=== PATIENT | male | born 1955 | race Caucasian/White ===

== ENCOUNTER → 2017-12-21 | Outpatient (CLI) | payer MEDICARE, BC ==
[2017-12-21 10:03] LABS: ALT 54 U/L (21-72); AST 34 U/L (17-59); Albumin 4.4 g/dL (3.5-5.0); Alkaline Phosphatase 42 U/L (38-126); Anion Gap 10 mmol/L; Blood Urea Nitrogen 21 mg/dL (9-20); Carbon Dioxide 24 mmol/L (22-30); Chloride 104 mmol/L (98-107); Cholesterol 99 mg/dL (<200); Glucose 135 mg/dL (74-99); HDL Cholesterol 36 mg/dL (40-60); LDL Cholesterol,Calculated 48 mg/dL (0-99); Potassium 4.9 mmol/L (3.5-5.1); Sodium 138 mmol/L (137-145); Total Bilirubin 0.5 mg/dL (0.2-1.3); Total Protein 6.9 g/dL (6.3-8.2); Triglycerides 73 mg/dL (<150)
[2017-12-21 18:48] LABS: Hemoglobin A1C 6.9 % (4.0-6.0)
== END | disposition home or self-care (01) ==
LOC: LABWHC1 09:12
PROVIDERS: ATTEND Internal Medicine Endocrinology, Diabetes & Metabolism
DX: E11.65 Type 2 diabetes mellitus with hyperglycemia (principal); E04.1 Nontoxic single thyroid nodule
CPT/HCPCS: 36415; 80053; 80061; 82043; 82570; 83036; 84439; 84443

== ENCOUNTER → 2019-01-23 | Outpatient (CLI) | payer MEDICARE, BC ==
--- NOTE | 2019-01-23 16:17 | US ---
EXAMINATION TYPE: US thyroid st tissue head/neck DATE OF EXAM: 01/23/2019 COMPARISON: NONE CLINICAL HISTORY: E11.65 TYPE 2 DIABETES. Hyperglycemia GLAND SIZE: Right Lobe: 5.1 x 2.2 x 1.8 cm Overall Parenchyma: homogenous Left Lobe: 4.6 x 1.5 x 1.3 cm Overall Parenchyma: homogeneous Isthmus Thickness: 0.5 cm NODULES RIGHT: # of nodules measured on right: 2 1. .8 X .5 x .6 cm mixed nodule at the upper pole with well-defined margins; . This nodule is wide r than tall and shows no intranodular vascularity. 2. .5 X .3 x .6 cm cystic nodule at the upper pole with well-defined margins; . This nodule is wide r than tall and shows no intranodular vascularity. LEFT: # of nodules measured on left: 2 1. .6 X .5 x .4 cm mixed nodule at the upper pole with well-defined margins; . This nodule is wide r than tall and shows no intranodular vascularity. 2. .4 X .4 x .4 cm cystic nodule at the upper pole with well-defined margins; . This nodule is wide r than tall and shows no intranodular vascularity. ISTHMUS: # of nodules measured in the isthmus: 0 Bilateral neck scanned, no evidence of lymphadenopathy. IMPRESSION: 1. Subcentimeter nodules bilateral thyroid lobes
== END | disposition home or self-care (01) ==
LOC: RADUSWWP 07:37
PROVIDERS: ATTEND Internal Medicine Endocrinology, Diabetes & Metabolism
DX: E04.1 Nontoxic single thyroid nodule (principal); E11.65 Type 2 diabetes mellitus with hyperglycemia
CPT/HCPCS: 76536

== ENCOUNTER → 2020-05-05 | Outpatient (CLI) | payer MEDICARE ==
[2020-05-05 15:11] LABS: African American GFR (CKD) 81.8 (60.0-200.0); Albumin 4.6 g/dL (3.80-4.90); Albumin/Globulin Ratio 2.19 (1.60-3.17); Anion Gap 7.1 mmol/L (4.00-12.00); BUN/Creat Ratio 19.09 Ratio (12.00-20.00); Calcium 9.8 mg/dL (8.7-10.3); Carbon Dioxide 25.9 mmol/L (21.6-31.8); Globulin 2.1 g/dL (1.6-3.3); Non-African American GFR(CKD) 70.6 (60.0-200.0); Potassium 4.9 mmol/L (3.5-5.5); Total Bilirubin 0.8 mg/dL (0.2-1.2); Total Protein 6.7 g/dL (6.2-8.2)
[2020-05-05 15:18] LABS: T4, Free (Free Thyroxine) 1.1 ng/dL (0.80-1.80)
[2020-05-05 15:31] LABS: Hemoglobin A1C 9.4 % (4.0-6.0)
== END | disposition home or self-care (01) ==
LOC: LABWHC1 08:51
PROVIDERS: ATTEND Internal Medicine Endocrinology, Diabetes & Metabolism
DX: E78.5 Hyperlipidemia, unspecified (principal); E11.65 Type 2 diabetes mellitus with hyperglycemia; E04.1 Nontoxic single thyroid nodule; I25.10 Atherosclerotic heart disease of native coronary artery without angina pectoris
CPT/HCPCS: 36415; 80053; 82043; 82570; 83036; 84439; 84443

== ENCOUNTER → 2020-05-12 | Outpatient (CLI) | payer MEDICARE ==
--- NOTE | 2020-05-12 14:59 | US ---
EXAMINATION TYPE: US thyroid st tissue head/neck DATE OF EXAM: 05/12/2020 COMPARISON: NONE CLINICAL HISTORY: E04.1 Nontoxic single thyroid nodule. GLAND SIZE: Right Lobe: 5.5 x 1.6 x 1.4 cm Overall Parenchyma: heterogenous Left Lobe: 3.4 x 1.2 x 1.0 cm Overall Parenchyma: heterogeneous Isthmus Thickness: 0.3 cm NODULES RIGHT: # of nodules measured on right: 2 1. 0.8 x 0.5 x 0.6 cm mixed cystic and solid, anechoic nodule, which is wider than tall, with hetal h margins, without echogenic foci. Prior size: 0.8 x 0.5 x 0.6 cm 2. 0.6 X 0.4 x 0.7 cm cystic or almost completely cystic, nodule, which is wider than tall, with sm ooth margins, without echogenic foci. Prior size: 0.5 x 0.3 x 0.6 cm LEFT: # of nodules measured on left: 2 1. 0.4 X 0.5 x 0.5 cm cystic or almost completely cystic, nodule, which is wider than tall, with sm ooth margins, without echogenic foci. Prior size: 0.6 x 0.5 x 0.4 cm 2. 0.5 X 0.4 x 0.4 cm cystic or almost completely cystic, nodule, which is taller than wide, with s mooth margins, without echogenic foci. Prior size: 0.4 x 0.4 x 0.4 cm ISTHMUS: # of nodules measured in the isthmus: 0 Bilateral neck scanned, no evidence of lymphadenopathy. IMPRESSION: Benign thyroid nodules. 2017 ACR TI-RADS LEVEL: 1 *Highest TI-RADS level nodule reported
== END | disposition home or self-care (01) ==
LOC: RADUSWWP 12:44
PROVIDERS: ATTEND Internal Medicine Endocrinology, Diabetes & Metabolism
DX: E04.2 Nontoxic multinodular goiter (principal)
CPT/HCPCS: 76536

== ENCOUNTER → 2020-08-24 | Outpatient (CLI) | payer MEDICARE ==
[2020-08-24 20:49] LABS: Hemoglobin A1C 7.2 % (4.0-6.0)
[2020-08-24 20:54] LABS: African American GFR (CKD) 81.2 (60.0-200.0); Albumin 4.9 g/dL (3.80-4.90); Albumin/Globulin Ratio 2.33 (1.60-3.17); Anion Gap 11.4 mmol/L (4.00-12.00); BUN/Creat Ratio 19.09 Ratio (12.00-20.00); Calcium 9.8 mg/dL (8.7-10.3); Carbon Dioxide 24.6 mmol/L (21.6-31.8); Globulin 2.1 g/dL (1.6-3.3); LDL Cholesterol,Calculated 55.2 mg/dL (0.0-131.0); Non-African American GFR(CKD) 70.1 (60.0-200.0); Potassium 4.8 mmol/L (3.5-5.5); Total Bilirubin 0.7 mg/dL (0.3-1.2); VLDL Calculation 34.8 mg/dL (5.00-40.00)
[2020-08-25 01:18] LABS: Urine Creatinine 89.6 mg/dL
== END | disposition home or self-care (01) ==
LOC: LABWHC1 11:39
PROVIDERS: ATTEND Internal Medicine Endocrinology, Diabetes & Metabolism
DX: E11.65 Type 2 diabetes mellitus with hyperglycemia (principal)
CPT/HCPCS: 36415; 80053; 80061; 82043; 82570; 83036; 84443

== ENCOUNTER → 2020-10-01 | Outpatient (CLI) | payer MEDICARE ==
[2020-10-01 18:52] LABS: Basophils % (A) 1.1 %; Eosinophils # (A) 0.37 X 10*3/uL (0.04-0.35); Eosinophils % (A) 4.1 %; HCT 43.3 % (39.6-50.0); Lymphocytes # (A) 2.29 X 10*3/uL (0.90-5.00); Lymphocytes % (A) 25.2 %; MCHC 32.3 g/dL (32.0-37.0); MCV 95.8 fL (80.0-97.0); Mean Platelet Volume 10.8 fL (9.5-12.2); Monocytes # (A) 0.62 X 10*3/uL (0.20-1.00); Monocytes % (A) 6.8 %; Neutrophils # (A) 5.55 X 10*3/uL (1.80-7.70); Platelet Count 227 X 10*3/uL (140-440); RBC 4.52 X 10*6/uL (4.40-5.60); RDW 13.5 % (11.5-14.5); WBC 9.09 X 10*3/uL (4.50-10.00)
== END | disposition home or self-care (01) ==
LOC: LABWHC1 09:08
PROVIDERS: ATTEND Family Medicine
DX: Z00.00 Encounter for general adult medical examination without abnormal findings (principal); Z12.11 Encounter for screening for malignant neoplasm of colon; Z12.5 Encounter for screening for malignant neoplasm of prostate; Z13.6 Encounter for screening for cardiovascular disorders; Z12.2 Encounter for screening for malignant neoplasm of respiratory organs; K57.90 Diverticulosis of intestine, part unspecified, without perforation or abscess without bleeding; N52.9 Male erectile dysfunction, unspecified; R53.83 Other fatigue
CPT/HCPCS: 36415; 84403; 85025

== ENCOUNTER → 2020-10-08 | Outpatient (CLI) | payer MEDICARE ==
--- NOTE | 2020-10-08 09:46 | CTL ---
EXAMINATION TYPE: CT Low Dose Lung DATE OF EXAM ORDERED: 10/08/2020 HISTORY: Long-term tobacco use. Lung cancer screening CT DLP: 99.[address] CTDI: 2.60 mGy Automated exposure control for dose reduction was used. SCREENING VISIT: Initial study COMPARISON: None TECHNIQUE: Low dose computed tomography scan was performed through the chest at 1 mm thick sections a nd reconstructed images in the coronal plane at [address] DIAGNOSTIC QUALITY: Satisfactory FINDINGS: LUNG NODULES: Present, detailed below: There is 2 to 3 mm anterior right mid lung nodule axial image 136. No concerning greater than 4 mm nodules. LUNGS: COPD: Severity: Mild to moderate Fibrosis: Severity: None Lymph nodes: None Other findings: None RIGHT PLEURAL SPACE: Effusion: None Calcification: None Thickening: None Pneumothorax: None LEFT PLEURAL SPACE: Effusion: None Calcification: None Thickening: None Pneumothorax: None HEART: Heart Size: Normal Coronary calcification: Moderate to severe three-vessel Pericardial effusion: None OTHER FINDINGS: Upper abdomen: Visualized liver heterogeneously hypodense consistent with diffuse fatty infiltration Bony thorax: Scoliotic curvature with mild to moderate multilevel spurring. Straightening of spine. Supraclavicular region: None Other: None IMPRESSION: No concerning greater than [address] LUNG RAD AND CT CHEST RECOMMENDATION: Lung-Rad 2 Benign Appearance or Behavior: Continue annual sc reening with LDCT in 12 months. S Modifier (other clinically significant findings): S Moderate to severe three-vessel coronary artery calcification should be correlated with additional ca rdiac risk factors.
--- NOTE | 2020-10-08 09:55 | US ---
EXAMINATION TYPE: US duplex aorta DATE OF EXAM: 10/08/2020 COMPARISON: NONE CLINICAL HISTORY: V81.2, Z13.6 AAA. Medicare screening EXAM MEASUREMENTS: Abdominal Aorta: Proximal: 2.3cm Mid: 1.8cm Distal: 1.5cm Bifurcation: obscured by overlying bowel gas Patient of large body habitus carrying most of his weight in his abdomen. Technically difficult, limi francis study. Visualized portion of the liver is heterogeneous hyperechoic suggesting diffuse fatty infiltration. IMPRESSION: Suboptimal study without ultrasound evidence for greater than 3.0 cm AAA on the images sa kamla.
== END | disposition home or self-care (01) ==
LOC: RADCTMAIN 09:08
PROVIDERS: ATTEND Family Medicine
DX: Z12.2 Encounter for screening for malignant neoplasm of respiratory organs (principal); I71.4 Abdominal aortic aneurysm, without rupture; Z13.6 Encounter for screening for cardiovascular disorders; Z87.891 Personal history of nicotine dependence
CPT/HCPCS: 71271; 93979

== ENCOUNTER → 2021-03-17 | Outpatient (CLI) | payer MEDICARE | END | disposition home or self-care (01) | LOC: LABWHC1 11:42 | PROVIDERS: ATTEND Family Medicine | DX: R29.898 Other symptoms and signs involving the musculoskeletal system (principal); R26.89 Other abnormalities of gait and mobility | CPT/HCPCS: 36415; 82746 ==

== ENCOUNTER → 2021-05-18 | Outpatient (CLI) | payer MEDICARE ==
[2021-05-18 15:53] LABS: ALT 28 U/L (10-49); AST 20 U/L (14-35); African American GFR (CKD) 97.1 (60.0-200.0); Albumin 4.6 g/dL (3.8-4.9); Albumin/Globulin Ratio 1.91 (1.60-3.17); Alkaline Phosphatase 58 U/L (41-126); BUN/Creat Ratio 25.92 Ratio (12.00-20.00); Blood Urea Nitrogen 24.6 mg/dL (9.0-27.0); Calcium 9.9 mg/dL (8.7-10.3); Carbon Dioxide 19.5 mmol/L (20.0-27.5); Chloride 102 mmol/L (96-109); Chol/HDL Ratio 4.44 Ratio; Globulin 2.4 g/dL (1.6-3.3); Glucose 180 mg/dL (70-110); LDL Cholesterol,Calculated 83.5 mg/dL (0.0-131.0); Non-African American GFR(CKD) 83.8 (60.0-200.0); Potassium 4.5 mmol/L (3.5-5.5); Sodium 136 mmol/L (135-145); Total Protein 6.9 g/dL (6.2-8.2)
[2021-05-18 22:47] LABS: Microalbumin Creatinine Ratio <30 mg/g Creat (0-30); Urine Creatinine 70.5 mg/dL (39.0-259.0)
== END | disposition home or self-care (01) ==
LOC: LABWHC1 09:31
PROVIDERS: ATTEND Internal Medicine Endocrinology, Diabetes & Metabolism
DX: E11.65 Type 2 diabetes mellitus with hyperglycemia (principal)
CPT/HCPCS: 36415; 80053; 80061; 82043; 82570; 83036; 84443

== ENCOUNTER → 2021-05-20 | Outpatient (CLI) | payer MEDICARE ==
[2021-05-20 17:56] LABS: T4, Free (Free Thyroxine) 1.32 ng/dL (0.800-1.800)
[2021-05-20 20:28] LABS: Protein, Total 7.1 g/dL (6.2-8.2)
== END | disposition home or self-care (01) ==
LOC: LABWHC1 09:48
PROVIDERS: ATTEND Psychiatry & Neurology Neurology
DX: G72.9 Myopathy, unspecified (principal); G60.9 Hereditary and idiopathic neuropathy, unspecified; R26.89 Other abnormalities of gait and mobility
CPT/HCPCS: 36415; 82306; 82550; 82607; 84165; 84207; 84439; 86334

== ENCOUNTER → 2021-05-23 | Outpatient (CLI) | payer MEDICARE ==
--- NOTE | 2021-05-27 04:53 | MR ---
EXAMINATION TYPE: MR cervical spine wo/w con DATE OF EXAM: 05/23/2021 COMPARISON: None HISTORY: Myelopathy, Muscle Weakness CONTRAST: Standard multiplanar, multisequence MRI departmental protocol images were obtained without contrast a nd with 9 mL intravenous Gadavist gadolinium contrast. Cervical vertebra have fairly normal alignment. There is some straightening of the mid cervical spine . There is degenerative disc space narrowing and decreased signal in the disks in the mid and lower c ervical spine. There is apparent old fusion surgery at C5-6. Cervical spinal cord has normal signal p attern. There is no edema. There is no spinal stenosis. Spinal canal measures 9.5 mm at the narrowest point which is C3-4. Brainstem is intact. There is no evidence of focal bone destruction. There is no cervical paraspinal mass. Contrast images show no pathologic enhancement. IMPRESSION: Previous fusion surgery. No spinal stenosis. No fracture.
== END | disposition home or self-care (01) ==
LOC: RADMRIMAIN 09:00
PROVIDERS: ATTEND Psychiatry & Neurology Neurology
DX: M48.02 Spinal stenosis, cervical region (principal); M50.10 Cervical disc disorder with radiculopathy, unspecified cervical region; Z98.1 Arthrodesis status
CPT/HCPCS: 72156; A9585

== ENCOUNTER → 2021-06-19 | Outpatient (CLI) | payer MEDICARE ==
--- NOTE | 2021-06-19 20:34 | MR ---
EXAMINATION TYPE: MR thoracic spine wo con DATE OF EXAM: 06/19/2021 COMPARISON: None HISTORY: Back pain, ataxia, manish leg weakness. Standard multiplanar, multisequence MRI departmental protocol Multiplanar, multisequence images of the thoracic were acquired without contrast. FINDINGS: Alignment is anatomic. There is loss of disc signal at all levels with mild to moderate multilevel de generative disc disease. No active marrow edema or compression deformities. T1-T2 no disc herniation or canal stenosis. No foraminal encroachment. At T2-T3 there is no evidence of disc herniation or canal stenosis. No foraminal encroachment. At T3-T4 there is minimal right paracentral disc bulging but no focal herniation. No Canal stenosis. Neural foramina remain patent. At T4-T5 there is degenerative disc disease and minimal central disc bulging but no evidence of canal stenosis or foraminal encroachment. At T5-T6 is degenerative disc disease. No disc herniation, or canal stenosis. No foraminal encroachme nt. At T6-T7 there is no disc herniation or canal stenosis. No foraminal encroachment. At T7-T8 there is left paracentral disc bulging. No canal stenosis or foraminal encroachment. There i s degenerative disc disease. At T8-T9 there is right paracentral disc bulging but no canal stenosis or foraminal protrusion. At T9-T10 degenerative disc disease but no disc herniation or canal stenosis. No foraminal encroachme nt At T10-T11 there is a focal left paracentral disc protrusion or small herniation. There is mild left- sided foraminal encroachment. There is no Canal stenosis. At T11-T12 there is degenerative disc disease but no disc herniation or canal stenosis. Neural forami na patent. T12-L1 no disc herniation or canal stenosis. There is facet arthropathy. No foraminal encroachment. There is no abnormal signal noted in the visualized portions of the spinal cord. No Canal stenosis. Faint nodularity seen in the right lung which could be artifactual but recommend correlation with [facility] CT scan. IMPRESSION: 1. Multilevel degenerative disc disease and multilevel disc bulging as discussed above. Most marked f indings seen at level T10-T11 with a focal left paracentral disc protrusion and mild left-sided shan inal encroachment. 2. Question of a right-sided pulmonary nodule right lung axial image 19 series 801. Measuring approxi mately [address] of the chest. EXAMINATION TYPE: MR lumbar spine wo con DATE OF EXAM: 06/19/2021 COMPARISON: NONE HISTORY: Back pain, ataxia, manish leg weakness. TECHNIQUE: T1 and T2 axial and sagittal images of the lumbar spine are submitted. FINDINGS: There is no abnormal signal seen within the visualized spinal cord or paraspinal soft tissu es. Slight scoliotic curvature of the spine. At L1-2 there is severe degenerative disc disease with right paracentral broad-based disc herniation resulting in moderate effacement of thecal sac and right-sided foraminal encroachment. Mild canal nathaniel nosis. At L2-3 there is severe degenerative disc disease with broad-based central disc protrusion and severe facet arthropathy. Mild to moderate bilateral foraminal encroachment greater on the right. At L3-4 there is moderate degenerative disc disease with diffuse broad-based disc bulging or protrusi on. There is borderline canal stenosis with facet arthropathy and mild bilateral foraminal encroachme nt greater on the right. At L4-5 there is degenerative disc disease with left paracentral disc protrusion. Disc material does extend posterior to the upper margin of the L5 vertebral segment on the left suggestive of a small ex truded disc herniation. Facet arthropathy. Mild effacement of thecal sac and mild to moderate bilater al foraminal encroachment. At L5-S1 there is degenerative disc disease with facet arthropathy. There is moderate bilateral shan inal encroachment and bilateral lateral recess stenosis with mild canal stenosis. There is diffuse di sc bulging with more broad-based component paracentrally and laterally to the left. Could not exclude a small left paracentral extruded disc fragment. Recommend post contrast imaging. IMPRESSION: 1. Multilevel severe degenerative disc disease with multilevel disc protrusion or herniation as discu ssed above. 2. Left paracentral disc herniation L4-L5 disc material extending along the posterior margin of the u pper L5 segment suggestive of a small extruded disc herniation. 3. Broad-based disc bulging L5-S1 with a small focal 5 mm area of abnormal signal within the left lat eral recess. Could not exclude a tiny extruded disc fragment recommend post contrast axial and sagitt al images for further evaluation. This could affect the left side nerve root correlation for radiculo meet in this distribution recommended. 4. Right paracentral broad-based disc herniation with moderate effacement of thecal sac and right-tyler ed foraminal encroachment L1-L2. 5. Multilevel canal stenosis and foraminal encroachment as discussed above.
== END | disposition home or self-care (01) ==
LOC: RADMRIMAIN 11:57
PROVIDERS: ATTEND Psychiatry & Neurology Neurology
DX: M51.36 Other intervertebral disc degeneration, lumbar region (principal); M51.34 Other intervertebral disc degeneration, thoracic region; M51.27 Other intervertebral disc displacement, lumbosacral region; M51.26 Other intervertebral disc displacement, lumbar region
CPT/HCPCS: 72146; 72148

== ENCOUNTER 2021-07-13 11:06 | Emergency (ER) | payer MEDICARE ==
[2021-07-13 11:24] VITALS: RESP 18
[2021-07-13] MEDS ORDERED: SODIUM CHLORIDE 0.9% 500 ML 500 ML IV STA (12:19)
[2021-07-13 12:45] LABS: Basophils # (A) 0.1 k/uL (0-0.2); Basophils % (A) 1 %; Eosinophils # (A) 0.3 k/uL (0-0.7); Eosinophils % (A) 4 %; HCT 39.7 % (39.0-53.0); HGB 13.5 gm/dL (13.0-17.5); Lymphocytes # (A) 1.8 k/uL (1.0-4.8); Lymphocytes % (A) 22 %; MCH 32.4 pg (25.0-35.0); MCV 95.5 fL (80.0-100.0); Mean Platelet Volume 8.6; Monocytes # (A) 0.4 k/uL (0-1.0); Monocytes % (A) 5 %; Neutrophils # (A) 5.4 k/uL (1.3-7.7); Neutrophils % (A) 66 %; Platelet Count 242 k/uL (150-450); RBC 4.16 m/uL (4.30-5.90); RDW 13.9 % (11.5-15.5); WBC 8.2 k/uL (3.8-10.6)
--- NOTE | 2021-07-13 12:45 | ED ---
General Adult HPI - General Chief complaint: Fall Stated complaint: Fall yesterday/head injury/blood thinners Time Seen by Provider: 07/13/21 12:05 Source: patient, RN notes reviewed, old records reviewed Mode of arrival: wheelchair Limitations: no limitations - History of Present Illness Initial comments: 65-year-old male presents for evaluation after a spell, loss consciousness and fall which occurred yesterday at 7 PM. He is presenting for evaluation at noon. He is on aspirin and brilinta. Patient states that he felt dizzy, fell striking the molding. He is uncertain how long he was unconscious. He states that he woke on the floor. Gone to bed normally states he felt relatively good throughout the evening. No chest pain. No palpitations. No vomiting or diarrhea. He has a mild headache at the site of injury. No recent fevers. - Related Data Previous Rx's Medication Instructions Recorded Azithromycin [Zithromax Z-pack] 0 mg PO DIRECTED #6 tab 07/13/21 Allergies Allergy/AdvReac Type Severity Reaction Status Date / Time No Known Allergies Allergy Verified 07/13/21 11:23 Review of Systems ROS Statement: Those systems with pertinent positive or pertinent negative responses have been documented in the HPI. ROS Other: All systems not noted in ROS Statement are negative. Past Medical History Past Medical History: Neurologic Disorder History of Any Multi-Drug Resistant Organisms: None Reported Past Surgical History: Heart Catheterization With Stent Past Psychological History: Anxiety Smoking Status: Never smoker Past Alcohol Use History: None Reported Past Drug Use History: None Reported General Exam Limitations: no limitations General appearance: alert, in no apparent distress Head exam: Present: other (Abrasion and superficial laceration to the left parietal scalp no active bleeding.) Eye exam: Present: normal appearance, PERRL ENT exam: Present: normal exam Neck exam: Present: normal inspection. Absent: tenderness, meningismus Respiratory exam: Present: normal lung sounds bilaterally. Absent: respiratory distress, wheezes Cardiovascular Exam: Present: regular rate, normal rhythm GI/Abdominal exam: Present: soft. Absent: distended, tenderness, guarding Extremities exam: Present: normal inspection, normal capillary refill. Absent: pedal edema, joint swelling Neurological exam: Present: alert, oriented X3, CN II-XII intact. Absent: motor sensory deficit Psychiatric exam: Present: normal affect, normal mood Skin exam: Present: warm, dry. Absent: cyanosis, diaphoretic Course Vital Signs 07/13/21 07/13/21 11:17 13:31 Temperature 98.2 F 97.6 F Pulse Rate 100 81 Respiratory 18 18 Rate Blood Pressure 94/63 106/56 O2 Sat by Pulse 95 96 Oximetry EKG Findings - EKG Comments: EKG Findings:: EKG: Sinus rhythm left axis, left bundle branch block, rate of 89, MS interval 149, QRS duration 141, QTC 414, no old for comparison. Patient states he does have history of left bundle branch block. Medical Decision Making - Medical Decision Making 65-year-old male presenting status post fall, loss consciousness. The exact details of the fall are not known but the patient really has no complaints time my evaluation. He is in sinus rhythm. He has a left bundle which she states is old, no old EKG for comparison. Chest x-ray shows some questionable interstitial infiltrate. He does report a previous tobacco use history and I'm increased cough over the past several days. He has a normal CBC, CMP showing a mild hyperglycemia and an acidosis with CO2 of 16. He has no ketones in the urine. His head CT is negative for intracranial hemorrhage, C-spine negative for fracture subluxation. I did offer the patient observation for telemetry and cardiology consultation but the patient declines he prefers to go home. He'll be prescribed antibiotics for this questionable pneumonia with increased cough. Return parameters discussed. - Lab Data Result diagrams: 07/13/21 12:33 07/13/21 12:33 Lab Results 07/13/21 07/13/21 07/13/21 Range/Units 12:33 12:33 12:33 WBC 8.2 (3.8-10.6) k/uL RBC 4.16 L (4.30-5.90) m/uL Hgb 13.5 (13.0-17.5) gm/dL Hct 39.7 (39.0-53.0) % MCV 95.5 (80.0-100.0) fL MCH 32.4 (25.0-35.0) pg MCHC 34.0 (31.0-37.0) g/dL RDW 13.9 (11.5-15.5) % Plt Count 242 (150-450) k/uL MPV 8.6 Neutrophils % 66 % Lymphocytes % 22 % Monocytes % 5 % Eosinophils % 4 % Basophils % 1 % Neutrophils # 5.4 (1.3-7.7) k/uL Lymphocytes # 1.8 (1.0-4.8) k/uL Monocytes # 0.4 (0-1.0) k/uL Eosinophils # 0.3 (0-0.7) k/uL Basophils # 0.1 (0-0.2) k/uL PT 9.8 (9.0-12.0) sec INR 0.9 (<1.2) APTT 21.3 L (22.0-30.0) sec Sodium (137-145) mmol/L Potassium (3.5-5.1) mmol/L Chloride (98-107) mmol/L Carbon Dioxide (22-30) mmol/L Anion Gap mmol/L BUN (9-20) mg/dL Creatinine (0.66-1.25) mg/dL Est GFR (CKD-EPI)AfAm (>60 ml/min/1.73 sqM) Est GFR (CKD-EPI)NonAf (>60 ml/min/1.73 sqM) Glucose (74-99) mg/dL Calcium (8.4-10.2) mg/dL Magnesium (1.6-2.3) mg/dL Total Bilirubin (0.2-1.3) mg/dL AST (17-59) U/L ALT (4-49) U/L Alkaline Phosphatase (38-126) U/L Troponin I (0.000-0.034) ng/mL Total Protein (6.3-8.2) g/dL Albumin (3.5-5.0) g/dL Urine Color Yellow Urine Appearance Clear (Clear) Urine pH 5.0 (5.0-8.0) Ur Specific [place] 1.032 (1.001-1.035) Urine Protein Negative (Negative) Urine Glucose (UA) 4+ H (Negative) Urine Ketones Negative (Negative) Urine Blood Small H (Negative) Urine Nitrite Negative (Negative) Urine Bilirubin Negative (Negative) Urine Urobilinogen <2.0 (<2.0) mg/dL Ur Leukocyte Esterase Negative (Negative) Urine RBC 4 (0-5) /hpf Urine WBC 1 (0-5) /hpf Urine Mucus Rare H (None) /hpf 07/13/21 07/13/21 Range/Units 12:33 12:33 WBC (3.8-10.6) k/uL RBC (4.30-5.90) m/uL Hgb (13.0-17.5) gm/dL Hct (39.0-53.0) % MCV (80.0-100.0) fL MCH (25.0-35.0) pg MCHC (31.0-37.0) g/dL RDW (11.5-15.5) % Plt Count (150-450) k/uL MPV Neutrophils % % Lymphocytes % % Monocytes % % Eosinophils % % Basophils % % Neutrophils # (1.3-7.7) k/uL Lymphocytes # (1.0-4.8) k/uL Monocytes # (0-1.0) k/uL Eosinophils # (0-0.7) k/uL Basophils # (0-0.2) k/uL PT (9.0-12.0) sec INR (<1.2) APTT (22.0-30.0) sec Sodium 136 L (137-145) mmol/L Potassium 4.9 (3.5-5.1) mmol/L Chloride 107 (98-107) mmol/L Carbon Dioxide 16 L (22-30) mmol/L Anion Gap 13 mmol/L BUN 28 H (9-20) mg/dL Creatinine 1.02 (0.66-1.25) mg/dL Est GFR (CKD-EPI)AfAm 89 (>60 ml/min/1.73 sqM) Est GFR (CKD-EPI)NonAf 77 (>60 ml/min/1.73 sqM) Glucose 277 H (74-99) mg/dL Calcium 9.8 (8.4-10.2) mg/dL Magnesium 1.6 (1.6-2.3) mg/dL Total Bilirubin 0.7 (0.2-1.3) mg/dL AST 20 (17-59) U/L ALT 20 (4-49) U/L Alkaline Phosphatase 60 (38-126) U/L Troponin I <0.012 (0.000-0.034) ng/mL Total Protein 6.7 (6.3-8.2) g/dL Albumin 3.9 (3.5-5.0) g/dL Urine Color Urine Appearance (Clear) Urine pH (5.0-8.0) Ur Specific [place] (1.001-1.035) Urine Protein (Negative) Urine Glucose (UA) (Negative) Urine Ketones (Negative) Urine Blood (Negative) Urine Nitrite (Negative) Urine Bilirubin (Negative) Urine Urobilinogen (<2.0) mg/dL Ur Leukocyte Esterase (Negative) Urine RBC (0-5) /hpf Urine WBC (0-5) /hpf Urine Mucus (None) /hpf Disposition Clinical Impression: Fall, Syncope, Concussion Disposition: HOME SELF-CARE Condition: Fair Instructions (If sedation given, give patient instructions): Fall Prevention (ED), Concussion (ED) Prescriptions: Azithromycin [Zithromax Z-pack] 0 mg PO DIRECTED #6 tab Is patient prescribed a controlled substance at d/c from ED?: No Referrals: Julien Moya [Primary Care Provider] - 1-2 days Time of Disposition: 14:57
--- NOTE | 2021-07-13 13:02 | XR ---
EXAMINATION TYPE: XR chest 2V DATE OF EXAM: 07/13/2021 COMPARISON: None HISTORY: 65-year-old male syncope TECHNIQUE: PA and lateral views FINDINGS: Heart normal size. Aorta within normal width. Peribronchial cuffing. Interstitial changes especially mid and lower lungs. Hyperinflation. No julia consolidation or pleural effusion. ACDF hardware partia lly seen. IMPRESSION: Interstitial changes especially in the mid and lower lungs with peribronchial cuffing as well. Underl steven COPD is suspected. Correlate to exclude superimposed bronchitis, asthma, or atypical pneumonias.
[2021-07-13 13:06] LABS: INR 0.9 (<1.2); Prothrombin Time 9.8 sec (9.0-12.0)
[2021-07-13 13:08] LABS: Partial Thromboplastin Time 21.3 sec (22.0-30.0)
--- NOTE | 2021-07-13 13:11 | CT ---
EXAMINATION TYPE: CT brain brionna gay con DATE OF EXAM: 07/13/2021 COMPARISON: None HISTORY: 65-year-old male with pain after trauma, FALL CT DLP: 1602.1 mGycm Automated exposure control for dose reduction was used. Technique: Examination of the head was done in axial plane without intravenous contrast. Coronal and sagittal reconstructions performed. CT of the cervical spine was obtained in axial plane without intravenous injection of contrast mater ial. Coronal and sagittal reformatted images were obtained from the axial views for evaluation of f ractures, spinal alignment and canal. FINDINGS: Head: There is no evidence of acute intracranial hemorrhage, acute ischemic changes, mass, mass-effect, or extra-axial fluid collection. There is no effacement of cerebral sulci or basal subarachnoid cister ns. There is no hydrocephalus. There is no midline shift. Sharma-white matter distinction is preserv ed. Mild mucosal thickening maxillary sinuses. Frothy partial opacification right sphenoid sinus. Trace m ucosal thickening ethmoid air cells. Mastoid air cells are well pneumatized. Orbits and globes are in tact. Cervical spine: Emphysematous change in the visualized upper lungs. Some patchy opacity is also present. The craniocervical junction abnormality, predental space widening, or prevertebral soft tissue swelli ng. Degenerative changes at the C1 dens articulation. Reversal of normal cervical lordosis. Scattered facet and uncovertebral joint arthropathy. There is grade 1 anterolisthesis C3-C4. Otherwise, remaining alignment is maintained. Post surgical change of C5-C6 ACDF. No acute fracture of the cervical spine. At C2-C3, moderate left neural foraminal stenosis. At C3-C4, moderate to severe right and moderate left neural foraminal stenosis. At C4-C5, moderate to severe left neuroforaminal stenosis. At C5-C6, moderate right greater than left neural foraminal stenosis. At C6-C7, moderate right and mild left neural foraminal stenosis. Sagittal and coronal reformatted images confirm above findings. COMBINED IMPRESSION: 1. No acute intracranial abnormality seen. 2. Status post C5-C6 ACDF with moderate multilevel spondylotic change and reversal of the normal cerv ical lordosis which could be positional or due to muscle spasm. There is a degenerative grade 1 anter olisthesis at C3-C4. No acute fracture of the cervical spine. 3. Mild chronic paranasal sinus disease. Correlate to exclude acute right sphenoid sinusitis. 4. COPD and the visualized upper lungs along with some areas of patchy density. Correlate to exclude pneumonitis.
[2021-07-13 13:17] LABS: Albumin 3.9 g/dL (3.5-5.0); Calcium 9.8 mg/dL (8.4-10.2); Magnesium 1.6 mg/dL (1.6-2.3); Potassium 4.9 mmol/L (3.5-5.1); Total Bilirubin 0.7 mg/dL (0.2-1.3); Total Protein 6.7 g/dL (6.3-8.2)
[2021-07-13 14:13] LABS: Appearance,Urine Clear (Clear); Bilirubin,Urine Negative (Negative); Blood,Urine Small (Negative); Color,Urine Yellow; Glucose,Urine (UA) 4+ (Negative); Ketones,Urine Negative (Negative); Leukocyte Esterase,Urine Negative (Negative); Mucus,Urine Rare /hpf; Nitrite,Urine Negative (Negative); Protein,Urine Negative (Negative); RBC,Urine 4 /hpf (0-5); Specific Gravity,Urine 1.032 (1.001-1.035); Urobilinogen,Urine <2.0 mg/dL (<2.0); WBC,Urine 1 /hpf (0-5)
[2021-07-13] MEDS ORDERED: DIPH,PERTUS(ACELL)TETVAC-LF 0.5 ML VIAL IM ONE (14:43)
[2021-07-13 14:56] VITALS: BP 118/65; PULSE 82; TEMP 98
== END 2021-07-13 15:07 | disposition home or self-care (01) ==
LOC: EC 11:06
DX: S06.0X9A Concussion with loss of consciousness of unspecified duration, initial encounter (principal); S01.01XA Laceration without foreign body of scalp, initial encounter; R55 Syncope and collapse; W18.39XA Other fall on same level, initial encounter
CPT/HCPCS: 36415; 70450; 71046; 72125; 80053; 81001; 83735; 84484; 85025; 85610; 85730; 90471; 90715; 93005; 99285

== ENCOUNTER → 2021-09-23 | Outpatient (CLI) | payer MEDICARE ==
--- NOTE | 2021-09-23 09:31 | CT ---
EXAMINATION TYPE: CT brain wo con DATE OF EXAM: 09/23/2021 COMPARISON: CT brain 07/13/2021 HISTORY: Headache CT DLP: 1012.70 mGycm Automated exposure control for dose reduction was used. Helical imaging through the brain. FINDINGS: There is no hemorrhage or hydrocephalus. Periventricular white matter shows some patchy low attenuati on. Cortical atrophy may be age-related. Calvarium is intact. There is air-fluid level in the sphenoi d sinus, ethmoid air cells show inflammatory change. There are cerebral vascular calcifications prese nt. IMPRESSION: NO ACUTE ABNORMALITY PRESENT WITHIN THE BRAIN. SPHENOID SINUSITIS. AGE-RELATED CHANGES OF ATROPHY AND PROBABLE CHRONIC SMALL VESSEL ISCHEMIA.
== END | disposition home or self-care (01) ==
LOC: RADCTMAIN 07:06
PROVIDERS: ATTEND Family Medicine
DX: J32.3 Chronic sphenoidal sinusitis (principal); G31.9 Degenerative disease of nervous system, unspecified
CPT/HCPCS: 70450